=== PATIENT | male | born 1935 | race Caucasian/White ===

== ENCOUNTER → 2018-05-22 | Outpatient (CLI) | payer MEDICARE ==
[~2018-05-22] MED LIST: BETA1 PO; CITRACEL; METRIBP PO; MULVITMINF PO; PANT40 PO; RIVA1.5 PO; RXHYD5325 PO; VITAMIN C; [UNRECOGNIZED DRUG - OTHER]; [UNRECOGNIZED DRUG - OTHER]
== END | disposition home or self-care (01) ==
LOC: LAB SHORT 10:27 → PLD 10:27
DX: D48.5 Neoplasm of uncertain behavior of skin (principal)
CPT/HCPCS: 88305

== ENCOUNTER 2018-11-01 16:45 | Emergency (ER) | payer MEDICARE ==
[~2018-11-01] VITALS: Ht 175.3 cm; Wt 79.4 kg
[2018-11-01 17:54] LABS: BASOPHILS ABSOLUTE AUTO 0.04 K/mm3 (0.00-0.23); BASOPHILS PERCENT AUTO 1 % (0-2); EOSINOPHILS ABSOLUTE AUTO 0.09 K/mm3 (0.00-0.68); EOSINOPHILS PERCENT AUTO 1 % (0-6); Hematocrit 40.3 % (37.0-53.0); Hemoglobin 12.8 g/dL (13.5-17.5); IMMATURE GRAN ABSOLUTE AUTO 0.05 K/mm3 (0.00-0.10); IMMATURE GRAN PERCENT AUTO 1 % (0-1); LYMPHOCYTES ABSOLUTE AUTO 2.28 K/mm3 (0.84-5.20); LYMPHOCYTES PERCENT AUTO 32 % (21-46); MONOCYTES ABSOLUTE AUTO 0.73 K/mm3 (0.16-1.47); MONOCYTES PERCENT AUTO 10 % (4-13); Mean Corpuscular HGB 29.2 pg (26.0-34.0); Mean Corpuscular HGB Conc 31.8 g/dL (31.5-36.5); Mean Corpuscular Volume 92 fL (80-100); Mean Platelet Volume 9.9 fL (9.1-12.4); NEUTROPHILS ABSOLUTE AUTO 3.92 K/mm3 (1.96-9.15); NEUTROPHILS PERCENT AUTO 55 % (41-73); Platelet Count 197 K/mm3 (150-400); RDW Coefficient Variation 13.6 % (11.7-14.2); RDW Standard Deviation 46.5 fL (35.1-46.3); Red Blood Cell Count 4.38 M/mm3 (4.30-5.90); White Blood Cell Count 7.11 K/mm3 (4.00-11.30)
[2018-11-01 18:00] LABS: Alanine Aminotransfer (ALT/SGP 33 U/L (12-78); Albumin, Blood 3.4 g/dL (3.4-5.0); Albumin/Globulin Ratio 1.1 (0.8-1.8); Alk Phos 85 U/L (50-136); Anion Gap 3 mmol/L (6-16); Aspartate Aminotrans (AST/SGOT 25 U/L (12-37); Bilirubin, Total 0.3 mg/dL (0.1-1.0); Blood Urea Nitrogen 14 mg/dL (8-24); Bun/Creatinine Ratio 11.8 (12.0-20.0); CO2, Blood 29 mmol/L (21-32); Calcium, Blood 8.7 mg/dL (8.5-10.1); Chloride, Blood 106 mmol/L (98-108); Creatinine, Blood 1.19 mg/dL (0.60-1.20); Globulin, Blood 3.1 g/dL (2.2-4.0); Glomerular Filtration Rate >60 (60-); Glucose, Blood 87 mg/dL (70-99); Potassium, Blood 3.9 mmol/L (3.5-5.5); Sodium, Blood 138 mmol/L (136-145); Total Protein, Blood 6.5 g/dL (6.4-8.2)
== END 2018-11-01 19:53 | disposition home or self-care (01) ==
LOC: ER 16:45
PROVIDERS: Emergency Medicine
DX: E11.649 Type 2 diabetes mellitus with hypoglycemia without coma (principal); Z88.2 Allergy status to sulfonamides; Z88.1 Allergy status to other antibiotic agents; Z88.8 Allergy status to other drugs, medicaments and biological substances; Z79.899 Other long term (current) drug therapy; I10 Essential (primary) hypertension
CPT/HCPCS: 80053; 82947; 83690; 84484; 85025; 93005; 93010; 99285-25

== ENCOUNTER 2019-05-14 20:51 | Emergency (ER) | payer MEDICARE ==
[~2019-05-14] VITALS: Ht 177.8 cm; Wt 77.1 kg
[2019-05-14 21:59] LABS: BASOPHILS ABSOLUTE AUTO 0.05 K/mm3 (0.00-0.23); BASOPHILS PERCENT AUTO 1 % (0-2); EOSINOPHILS ABSOLUTE AUTO 0.04 K/mm3 (0.00-0.68); EOSINOPHILS PERCENT AUTO 1 % (0-6); Hematocrit 38.7 % (37.0-53.0); IMMATURE GRAN ABSOLUTE AUTO 0.03 K/mm3 (0.00-0.10); IMMATURE GRAN PERCENT AUTO 0 % (0-1); LYMPHOCYTES ABSOLUTE AUTO 2.17 K/mm3 (0.84-5.20); LYMPHOCYTES PERCENT AUTO 31 % (21-46); MONOCYTES ABSOLUTE AUTO 0.58 K/mm3 (0.16-1.47); MONOCYTES PERCENT AUTO 8 % (4-13); Mean Corpuscular HGB 29.3 pg (26.0-34.0); Mean Corpuscular HGB Conc 33.6 g/dL (31.5-36.5); Mean Corpuscular Volume 87 fL (80-100); Mean Platelet Volume 9.3 fL (9.1-12.4); NEUTROPHILS ABSOLUTE AUTO 4.05 K/mm3 (1.96-9.15); NEUTROPHILS PERCENT AUTO 59 % (41-73); Platelet Count 225 K/mm3 (150-400); RDW Coefficient Variation 13.6 % (11.7-14.2); Red Blood Cell Count 4.44 M/mm3 (4.30-5.90); White Blood Cell Count 6.92 K/mm3 (4.00-11.30)
[2019-05-14 22:17] LABS: Alanine Aminotransfer (ALT/SGP 34 U/L (12-78); Albumin, Blood 3.7 g/dL (3.4-5.0); Albumin/Globulin Ratio 1.2 (0.8-1.8); Alk Phos 82 U/L (50-136); Anion Gap 9 mmol/L (6-16); Aspartate Aminotrans (AST/SGOT 31 U/L (12-37); Bilirubin, Total 0.4 mg/dL (0.1-1.0); Blood Urea Nitrogen 9 mg/dL (8-24); Bun/Creatinine Ratio 10.1 (12.0-20.0); CO2, Blood 26 mmol/L (21-32); Calcium, Blood 8.6 mg/dL (8.5-10.1); Chloride, Blood 102 mmol/L (98-108); Creatinine, Blood 0.89 mg/dL (0.60-1.20); Ethanol (Alcohol), Blood, Med 79 mg/dL; Glomerular Filtration Rate >60 (60-); Glucose, Blood 93 mg/dL (70-99); Potassium, Blood 3.4 mmol/L (3.5-5.5); Sodium, Blood 137 mmol/L (136-145); Total Protein, Blood 6.7 g/dL (6.4-8.2)
== END 2019-05-14 22:38 | disposition home or self-care (01) ==
LOC: ER 20:51
PROVIDERS: Physician Assistant
DX: F10.129 Alcohol abuse with intoxication, unspecified (principal); Y90.3 Blood alcohol level of 60-79 mg/100 ml; F03.90 Unspecified dementia, unspecified severity, without behavioral disturbance, psychotic disturbance, mood disturbance, and anxiety; Z88.2 Allergy status to sulfonamides; Z88.1 Allergy status to other antibiotic agents; Z88.8 Allergy status to other drugs, medicaments and biological substances; Z79.899 Other long term (current) drug therapy
CPT/HCPCS: 36415; 80053; 82947; 85025; 93005; 93010; 99284-25; G0480

== ENCOUNTER 2019-07-04 19:06 | Observation (INO) | payer MEDICARE, OTHER ==
[~2019-07-04] VITALS: Ht 190.5 cm; Wt 76.3 kg
[2019-07-04] MEDS ORDERED: Flonase 0.05% N16 GM (20:26)
[2019-07-04] MEDS ORDERED: GALA8 PO (20:27)
[2019-07-04] MEDS ORDERED: Citrucel500 MG (20:28)
[2019-07-04] MEDS ORDERED: TUMS500 MG PO (20:28)
[2019-07-04] MEDS ORDERED: AMLO10 PO (20:30)
[2019-07-04] MEDS ORDERED: OCUVITE ADULT1 EAC1 PO (20:30)
[2019-07-04 20:38] LABS: BASOPHILS ABSOLUTE AUTO 0.03 K/mm3 (0.00-0.23); BASOPHILS PERCENT AUTO 0 % (0-2); EOSINOPHILS ABSOLUTE AUTO 0.02 K/mm3 (0.00-0.68); EOSINOPHILS PERCENT AUTO 0 % (0-6); Hematocrit 40.3 % (37.0-53.0); Hemoglobin 13.5 g/dL (13.5-17.5); IMMATURE GRAN ABSOLUTE AUTO 0.04 K/mm3 (0.00-0.10); IMMATURE GRAN PERCENT AUTO 0 % (0-1); LYMPHOCYTES ABSOLUTE AUTO 1.78 K/mm3 (0.84-5.20); LYMPHOCYTES PERCENT AUTO 19 % (21-46); MONOCYTES PERCENT AUTO 8 % (4-13); Mean Corpuscular HGB 28.8 pg (26.0-34.0); Mean Corpuscular HGB Conc 33.5 g/dL (31.5-36.5); Mean Corpuscular Volume 86 fL (80-100); Mean Platelet Volume 8.9 fL (9.1-12.4); NEUTROPHILS ABSOLUTE AUTO 6.73 K/mm3 (1.96-9.15); NEUTROPHILS PERCENT AUTO 73 % (41-73); Platelet Count 228 K/mm3 (150-400); RDW Coefficient Variation 13.9 % (11.7-14.2); RDW Standard Deviation 43.8 fL (35.1-46.3); Red Blood Cell Count 4.68 M/mm3 (4.30-5.90)
[2019-07-04 21:00] LABS: Acetaminophen, Random <2.0 ug/mL (10.0-30.0); Alanine Aminotransfer (ALT/SGP 34 U/L (12-78); Albumin/Globulin Ratio 1.4 (0.8-1.8); Alk Phos 81 U/L (50-136); Anion Gap 10 mmol/L (6-16); Aspartate Aminotrans (AST/SGOT 29 U/L (12-37); Bilirubin, Total 0.6 mg/dL (0.1-1.0); Blood Urea Nitrogen 12 mg/dL (8-24); Bun/Creatinine Ratio 9.6 (12.0-20.0); CO2, Blood 25 mmol/L (21-32); Calcium, Blood 9.5 mg/dL (8.5-10.1); Chloride, Blood 105 mmol/L (98-108); Creatinine, Blood 1.25 mg/dL (0.60-1.20); Ethanol (Alcohol), Blood, Med <3 mg/dL; Globulin, Blood 2.8 g/dL (2.2-4.0); Glomerular Filtration Rate 59 (60-); Glucose, Blood 118 mg/dL (70-99); Potassium, Blood 3.7 mmol/L (3.5-5.5); Salicylate <1.7 mg/dL (2.8-20.0); Sodium, Blood 140 mmol/L (136-145); Total Protein, Blood 6.8 g/dL (6.4-8.2)
[2019-07-04 21:47] LABS: Source, Urine Clean Catch
[2019-07-04 21:52] LABS: Bilirubin, Urine Neg (Neg); Blood, Urine Neg (Neg); Glucose Qualitative, Urine Neg (Neg); Ketones, Urine 3+ (Neg); Leukocyte Esterase, Urine 2+ (Neg); Nitrite, Urine Neg (Neg); Protein, Urine 1+ (Neg); Specific Gravity, Urine 1.015 (1.003-1.022); Urobilinogen, Urine NORM (Normal)
[2019-07-04 21:57] LABS: Appearance, Urine Clear (Clear); Color, Urine Yellow (P-Yellow)
[2019-07-04] MEDS ORDERED: TAMS.4ER PO (21:57)
[2019-07-04] MEDS ORDERED: RAZADYNE PO (21:57)
[2019-07-04] MEDS ORDERED: VITAMIN D5000 UNI1 PO (21:58)
[2019-07-04] MEDS ORDERED: TIMO.25OPS BOTHEYES (21:58)
[2019-07-04] MEDS ORDERED: TRAZ50 PO (21:59)
[2019-07-04 22:01] LABS: Bacteria Mod /hpf; Mucus Mod (0-Heavy); Red Blood Cells, Urine 0-2 /hpf (0-2); Squamous Epithelial Cells Rare /hpf (Few)
[2019-07-04 22:02] LABS: U Amphetamine Screen Not Detected; U Barbituate Screen Not Detected; U Benzodiazapine Screen Not Detected; U Cocaine Screen Not Detected; U Methadone Screen Not Detected; U Methamphetamine Screen Not Detected; U Opiates Screen Not Detected; U Phencyclidine Screen Not Detected
[2019-07-04 22:03] LABS: U Buprenorphine Screen Not Detected; U Cannabinoids Screen Not Detected; U Oxycodone Screen Not Detected; U Propoxyphene Screen Not Detected
[2019-07-04 23:26] LABS: Free Thyroxine 1.21 ng/dL (0.70-1.60)
[2019-07-05 05:22] LABS: Hematocrit 39.4 % (37.0-53.0); Hemoglobin 12.9 g/dL (13.5-17.5); Mean Corpuscular HGB 28.7 pg (26.0-34.0); Mean Corpuscular HGB Conc 32.7 g/dL (31.5-36.5); Mean Corpuscular Volume 88 fL (80-100); Mean Platelet Volume 9.3 fL (9.1-12.4); Platelet Count 219 K/mm3 (150-400); RDW Standard Deviation 44.6 fL (35.1-46.3); Red Blood Cell Count 4.49 M/mm3 (4.30-5.90); White Blood Cell Count 8.85 K/mm3 (4.00-11.30)
[2019-07-05 06:05] LABS: Alanine Aminotransfer (ALT/SGP 28 U/L (12-78); Albumin, Blood 3.6 g/dL (3.4-5.0); Albumin/Globulin Ratio 1.2 (0.8-1.8); Alk Phos 79 U/L (50-136); Anion Gap 7 mmol/L (6-16); Aspartate Aminotrans (AST/SGOT 24 U/L (12-37); Bilirubin, Total 0.6 mg/dL (0.1-1.0); Blood Urea Nitrogen 13 mg/dL (8-24); Bun/Creatinine Ratio 13.6 (12.0-20.0); CO2, Blood 27 mmol/L (21-32); Calcium, Blood 9.2 mg/dL (8.5-10.1); Chloride, Blood 109 mmol/L (98-108); Creatinine, Blood 0.96 mg/dL (0.60-1.20); Globulin, Blood 2.9 g/dL (2.2-4.0); Glomerular Filtration Rate >60 (60-); Glucose, Blood 104 mg/dL (70-99); Potassium, Blood 3.9 mmol/L (3.5-5.5); Sodium, Blood 143 mmol/L (136-145); Total Protein, Blood 6.5 g/dL (6.4-8.2)
--- NOTE | 2019-07-05 07:28 | NUR ---
SHIFT SUMMARY PT ARRIVED TO ROOM APPROX 2315. ORIENTED TO SELF ONLY AND MAKING SOUNDS MORE THAN SPEAKING WORDS. RESTLESS AND TRYING TO GET OOB. MEDICATED PER EMAR AND HE WAS ABLE TO DOSE A LITTLE BIT. DIDN'T SLEEP MUCH. SBA WHEN OOB. CONT AND WILL GET OOB WHEN HE NEEDS TO GO. BED ALARM IN USE.
--- NOTE | 2019-07-05 19:16 | NUR ---
SHIFT SUMMARY: NO ACUTE CHANGES TO REPORT THIS SHIFT. PTALERT; ORIENTED TO SELF AND FAMILY. SEVERE DEMENTIA; PT ABLE TO FOLLOW SIMPLE COMMANDS. PT UP WITH SBA. PATIENT WILL REQUIRE PLACEMENT IN MEMORY CARE. REPORT GIVEN TO ONCOMING RN.
--- NOTE | 2019-07-06 01:26 | NUR ---
0110 Found patient on the floor on his knees. Pt has one small scrap on his left knee. No other apparent injuries noted. We were able to get him back in bed without problems. Pt has severe dementia and will not stay in bed unless poseyed so pt put back on farrukh restraint. Vital signs are BP 135/89, pulse 70, rr 14, temperature 97.4, and O2 sat of 96%. MD notified. Restraint orders recieved. Pt cleaned up and put in farrukh restraints. Bed alarm on.
--- NOTE | 2019-07-06 05:26 | NUR ---
Shift summary. Pt was very mobile and ambulating the stewart earlier in shift. pt seemed stable. Around one in am pt fell to his knees at end of bed. See above noted. No significant injuries noted. Pt has one small abrasion on left knee. No c/o pain. MD notified and orders for farrukh restrain orders recieved. Pt will not stay in bed unless he is poseyed. Has not slept all night. Keeps trying to get up constantly. VSS. Speech very difficult to understand.
--- NOTE | 2019-07-06 07:29 | NUR ---
Pt bladder scanned for 817 cc.
[2019-07-06 08:41] LABS: BASOPHILS ABSOLUTE AUTO 0.02 K/mm3 (0.00-0.23); BASOPHILS PERCENT AUTO 0 % (0-2); EOSINOPHILS ABSOLUTE AUTO 0.04 K/mm3 (0.00-0.68); EOSINOPHILS PERCENT AUTO 1 % (0-6); Hemoglobin 15.4 g/dL (13.5-17.5); IMMATURE GRAN ABSOLUTE AUTO 0.03 K/mm3 (0.00-0.10); IMMATURE GRAN PERCENT AUTO 0 % (0-1); LYMPHOCYTES ABSOLUTE AUTO 2.05 K/mm3 (0.84-5.20); LYMPHOCYTES PERCENT AUTO 28 % (21-46); MONOCYTES ABSOLUTE AUTO 0.63 K/mm3 (0.16-1.47); MONOCYTES PERCENT AUTO 9 % (4-13); Mean Corpuscular HGB 28.7 pg (26.0-34.0); Mean Corpuscular HGB Conc 32.8 g/dL (31.5-36.5); Mean Corpuscular Volume 88 fL (80-100); Mean Platelet Volume 9.1 fL (9.1-12.4); NEUTROPHILS ABSOLUTE AUTO 4.57 K/mm3 (1.96-9.15); NEUTROPHILS PERCENT AUTO 62 % (41-73); Platelet Count 254 K/mm3 (150-400); RDW Standard Deviation 45.1 fL (35.1-46.3); Red Blood Cell Count 5.36 M/mm3 (4.30-5.90); White Blood Cell Count 7.34 K/mm3 (4.00-11.30)
[2019-07-06 09:04] LABS: Anion Gap 6 mmol/L (6-16); Blood Urea Nitrogen 8 mg/dL (8-24); Bun/Creatinine Ratio 9.5 (12.0-20.0); CO2, Blood 29 mmol/L (21-32); Calcium, Blood 9.5 mg/dL (8.5-10.1); Chloride, Blood 108 mmol/L (98-108); Creatinine, Blood 0.84 mg/dL (0.60-1.20); Glomerular Filtration Rate >60 (60-); Glucose, Blood 110 mg/dL (70-99); Potassium, Blood 3.5 mmol/L (3.5-5.5); Sodium, Blood 143 mmol/L (136-145)
--- NOTE | 2019-07-06 09:09 | NUR ---
PATIENT DID NOT EAT BREAKFAST THIS SHIFT DUE TO BEING NOT AWAKE ENOUGH TO EAT. RN NOTIFIED.
--- NOTE | 2019-07-06 13:16 | NUR ---
PATIENT DID NOT EAT LUNCH THIS SHIFT DUE TO NOT BEING AWAKE ENOUGH TO EAT. RN WAS NOTIFIED.
--- NOTE | 2019-07-06 15:43 | NUR ---
HE WAS BLADDER SCANNED TWICE AT THE START OF THE SHIFT BEFORE AND AFTER A LARGE INCONTINENT VOID. SCANS SHOWED 800 MLS AND > 999 MLS. WE WALKED HIM TO THE BATHROOM SO HE COULD TRY TO VOID IN THE TOILET BUT HE WAS UNABLE TO FOLLOW INSTRUCTIONS AND DID NOT VOID. I THEN ST CATHED HIM FOR 700 MLS OF CLEAR YELLOW URINE. HE NEEDED TO HAVE HIS HANDS HELD DURING THE PROCEDURE. HE WAS VERY SLEEPY. HE DID NOT SLEEP LAST NIGHT. HE THEN SLEPT ALL MORNING AND REFUSED THE FOOD WHEN A SPOON WAS PUT TO HIS MOUTH AT LUNCH TIME. HE REMAINED DRY. LATER HIS DAUGHTER CAME IN TO VISIT HIM. SHE AND I WOKE HIM UP ENOUGH TO TAKE HIS AM PILLS. HE ALSO, WITH ASSIST WALKED TO THE BATHROOM, SAT DOWN ON THE TOILET BUT DID NOT VOID OR HAVE A BM. HIS STEPS ARE UNCERTAIN AND HE DOES NOT FOLLOW DIRECTIONS WELL AT ALL. HE ATE A BANANA, 1/2 SANDWICH AND NOW IS EATING SOME CHIPS. HE ALSO ATE APPLESAUCE, AND DRANK APPLE JUICE. HIS JUST ARRIVED. HIS LANDEN VEST HAS BEEN UNTIED WHILE FAMILY IS IN THE ROOM. HE CANNOT UNDERSTAND HOW TO USE A NURSE CALL LIGHT AND IS UNSAFE AMBULATING ALONE TODAY. BALANCE AND GAIT ARE BOTH COMPROMISED.
--- NOTE | 2019-07-07 04:43 | NUR ---
Shift summary: Pt slept well overnight. Pt remains on restraints due to recent fall. pt has been cooperative with care but alert and oriented x 0. Bladder scanned at hs for 390 cc. Restraints renewed.
--- NOTE | 2019-07-07 08:33 | NUR ---
PATIENTS ATTENDS WERE CHANGED BUT THEY WERE DRY.
--- NOTE | 2019-07-07 17:58 | NUR ---
HE HAS BEEN UP IN THE RECLINER CHAIR MOST OF THE DAY. CLINT DIETZ WAS DC'D AT 1115 TODAY. HIS FAMILY VISITED FOR A FEW HRS AND MAY STOP BY AGAIN THIS EVENING. 2 CHEMICAL MACHINE TENDER'S ARE HELPING HIM BACK TO BED NOW FOR THE NIGHT. HE HAS BEEN CHANGED AGAIN FOR URINARY INCONTINENCE. I NOTIFIED ABOUT THE HIGH BP'S. ORDERS RECEIVED. NO OTHER CHANGES.
[2019-07-08 04:59] LABS: BASOPHILS ABSOLUTE AUTO 0.02 K/mm3 (0.00-0.23); BASOPHILS PERCENT AUTO 0 % (0-2); EOSINOPHILS ABSOLUTE AUTO 0.04 K/mm3 (0.00-0.68); EOSINOPHILS PERCENT AUTO 0 % (0-6); Hematocrit 42.3 % (37.0-53.0); Hemoglobin 14.2 g/dL (13.5-17.5); IMMATURE GRAN ABSOLUTE AUTO 0.04 K/mm3 (0.00-0.10); IMMATURE GRAN PERCENT AUTO 0 % (0-1); LYMPHOCYTES ABSOLUTE AUTO 2.64 K/mm3 (0.84-5.20); LYMPHOCYTES PERCENT AUTO 24 % (21-46); MONOCYTES ABSOLUTE AUTO 0.81 K/mm3 (0.16-1.47); MONOCYTES PERCENT AUTO 8 % (4-13); Mean Corpuscular HGB Conc 33.6 g/dL (31.5-36.5); Mean Corpuscular Volume 86 fL (80-100); Mean Platelet Volume 8.9 fL (9.1-12.4); NEUTROPHILS ABSOLUTE AUTO 7.31 K/mm3 (1.96-9.15); NEUTROPHILS PERCENT AUTO 67 % (41-73); Platelet Count 222 K/mm3 (150-400); RDW Coefficient Variation 14.3 % (11.7-14.2); RDW Standard Deviation 45.1 fL (35.1-46.3); White Blood Cell Count 10.86 K/mm3 (4.00-11.30)
--- NOTE | 2019-07-08 05:08 | NUR ---
PERFORMED BLADDER SCAN, 697ML NOTED. STRAIGHT CATH DONE PER ORDER. 700MLS OF URINE OUTPUT, PT. TOLERATED WELL.
[2019-07-08 05:23] LABS: Alanine Aminotransfer (ALT/SGP 24 U/L (12-78); Albumin, Blood 3.3 g/dL (3.4-5.0); Alk Phos 74 U/L (50-136); Anion Gap 6 mmol/L (6-16); Aspartate Aminotrans (AST/SGOT 26 U/L (12-37); Bilirubin, Total 0.6 mg/dL (0.1-1.0); Blood Urea Nitrogen 16 mg/dL (8-24); Bun/Creatinine Ratio 14.8 (12.0-20.0); CO2, Blood 29 mmol/L (21-32); Calcium, Blood 9.3 mg/dL (8.5-10.1); Chloride, Blood 106 mmol/L (98-108); Creatinine, Blood 1.08 mg/dL (0.60-1.20); Globulin, Blood 3.3 g/dL (2.2-4.0); Glomerular Filtration Rate >60 (60-); Glucose, Blood 93 mg/dL (70-99); Potassium, Blood 3.8 mmol/L (3.5-5.5); Sodium, Blood 141 mmol/L (136-145); Total Protein, Blood 6.6 g/dL (6.4-8.2)
--- NOTE | 2019-07-08 06:04 | NUR ---
SHIFT SUMMARY- PT. CONFUSED, OUT OF BED LAST NIGHT. ASSISTED BACK INTO BED W/O DIFFICULTY. RESTRAINTS HAVE BEEN OFF SINCE YESTERDAY MORNING, PT. COOPERATIVE WITH CARE. PERFORMED BLADDER SCAN PER ORDER, PVR AT 697ML. STRAIGHT CATH DONE, 700MLS OUT, PT. TOLERATED WELL. PT. RESTING COMFORTABLY IN BED, NO APPARENT DISTRESS NOTED. CALL LIGHT WITHIN REACH, SIDE RAILS UP X3, AND BED ALARM ON. WILL CONT TO MONITOR.
--- NOTE | 2019-07-08 15:10 | NUR ---
SUMM- PT ALERT TO SELF AND FAMILY. PROCESSING DIFFICULTY, UNABLE TO FOLLOW COMMANDS. AMBULATES 1-2 SBA WITH WALKER, GOOD STRENGTH, POOR COORDINATION, SLOW AND RIGID. UP IN THE CHAIR MOST OF THE SHIFT TODAY. ASSISTANCE WITH FEEDING, SWALLOW INTACT. NO VOID TODAY, BLADDER SCAN 1400= 275ML. ST CATH FOR 300ML. AT BEDSIDE MOST OF THE DAY, AND DAUGHTER AND SON IN TO VISIT FROM [place].
--- NOTE | 2019-07-08 22:29 | NUR ---
PERFORMED BLADDER SCAN PER ORDER, 479MLS NOTED. STRAIGHT CATH DONE, PT. HAD OUT 600MLS OF URINE, TOLERATED WELL.
--- NOTE | 2019-07-09 04:29 | NUR ---
SHIFT SUMMARY- PT. NOT VOIDING. BLADDER SCAN DONE PER ORDER, 479MLS. ST CATH PERFORMED WITH OUTPUT OF 600MLS. PT. TOLERATED WELL. SEVERAL ATTEMPTS MADE BY PT. TO GET OUT OF BED AND WAS AGITATED. PT. ASSISTED BACK INTO BED MANY TIMES, REPOSITIONED FOR COMFORT. ZYPREXA PRN GIVEN PER EMAR. PT. RESTING COMFORTABLY IN BED, NO APPARENT DISTRESS NOTED. CALL LIGHT WITHIN REACH, SIDE RAILS UP X3, AND BED ALARM ON. WILL CONT TO MONITOR.
--- NOTE | 2019-07-09 14:06 | NUR ---
Physician notified Dr. Freitas notified of pt's wanting stool softeners of board for patient's bowel care. Orders received.
--- NOTE | 2019-07-09 17:40 | NUR ---
Shift Summary A/O to self, a little agitated this morning. Pt is difficult to redirect, has been in chair for meals, and family has been at bedside. Vest restraints in place for patient and staff safety as patient becomes easily agitated when trying to redirect. Meal assistance required. Ambulated in hallway c 1-2 assist and gait. VSS, afebrile. No other acute changes this shift.
--- NOTE | 2019-07-10 02:40 | NUR ---
PERFORMED BLADDER SCAN= >420MLS. ST CATH DONE PER ORDER, PT. HAD OUTPUT OF 600MLS, TOLERATED WELL. REPOSITIONED IN BED FOR COMFORT, ATTENDS IN PLACE. NO APPARENT DISTRESS NOTED. CALL LIGHT WITHIN REACH, SIDE RAILS UP X3, LANDEN VEST ON, AND BED ALARM SET. WILL CONT TO MONITOR.
--- NOTE | 2019-07-10 04:07 | NUR ---
SHIFT SUMMARY- PT. WAS UP IN CHAIR AT THE BEGINNING OF SHIFT WITH VEST RESTRAINT ON. PT. BECAME AGITATED WHILE UP IN CHAIR AND REFUSING TO TAKE SCHEDULED MEDICATIONS. ASSISTED BACK INTO BED AND REPOSITIONED FOR COMFORT. PT. COOPERATIVE AFTERWARDS. SCHEDULED MEDS GIVEN. NO URINE OUTPUT NOTED IN BRIEF. PERFORMED BLADDER SCAN PER ORDER, = >420MLS. STRAIGHT CATH DONE PER ORDER, PT. HAD OUTPUT OF 600MLS. PT. RESTING CONFORTABLY IN BED, NO APPARENT DISTRESS NOTED. AWAITING ON PLACEMENT. CALL LIGHT WITHIN REACH, VEST RESTRAINT ON, SIDE RAILS UP X3, AND BED ALARM ON. WILL CONT TO MONITOR.
--- NOTE | 2019-07-10 16:17 | NUR ---
Straight Cath Bladder scan showed >400mL. Straight cath was done with 400 output. Pt tolerated procedure well.
--- NOTE | 2019-07-10 17:59 | NUR ---
Shift Summary A/O to self and family. Agitated this morning, behavior improved as the day progressed. Pt actually seemed more drowsy this afternoon compared to yesterday. Family has been in assisting with meals, tolerating meals well. See previous note about bladder scan. Up in chair part of the day. VSS, afebrile. No other acute changes, awaiting placement.
--- NOTE | 2019-07-11 05:14 | NUR ---
SHIFT SUMMARY: JOHNNA IS A 82 Y/O MALE WHO IS PLEASANTLY CONFUSED. HE HAD NO PERIODS OF AGGITATION TONIGHT. HIS SPEECH WAS VERY INCOMPERHENSIVABLE, WITH GARBLED WORDS. HE REMAINED CALM AND SLEPT MOST OF THE NIGHT, RESTRAINT VEST REMAINED IN POSITION HE DID HAVE PERIODS DURING THE DAY OF TRYING TO GET UP. HE TOOK HIS MEDS WITH APPLESAUCE WITH NO PROBLEMS THEN WENT TO SLEEP AFTERWARDS. WILL REPORT NO CHANGES TO THE DAY SHIFT RN.
--- NOTE | 2019-07-11 06:30 | NUR ---
NO URINATION ALL NIGHT, BLADDER SCAN SHOWED 396, STRAIGHT CATH PATIENT, GOT 400CC OF CLEAR YELLOW URINE.
--- NOTE | 2019-07-11 10:17 | NUR ---
VERIFIED VISUAL MONITORING AT 1015, THEY HAVE EYES ON PATIENT
--- NOTE | 2019-07-11 11:19 | NUR ---
PT TURNED PILLOWS PLACED BOTH SIDES. BUTTOCKS SOME REDNESS NOTED.
--- NOTE | 2019-07-11 17:30 | NUR ---
PT IN BED WATCHING TV. CHECKED ATTENDS. IS CDI. REPOSITIOINED. BED IN LOW POSITIOIN, CALL LITE IN REACH, BED ALARM ON FOR SAFETUY
--- NOTE | 2019-07-11 19:11 | NUR ---
SHIFT SUMMARY GOERGE HAD RESTRAINTS DISCONTINUED THIS MORNING AT 0730, PT ALERT AND CONFUSED, BUT RESTING IN BED COMFORTABLY AND NOT ATTEMPTING TO GET OOB. FAMILY VISITED AND ASSISTED PT TO EAT, BUT BY DINNER HE IS FULLY FEEDING HIMSELF WITH JUST MEAL SET UP. NO URINE OUTPUT AND BLADDER SCAN TOWARDS END OF SHIFT SHOWED 450, DR LEVINE ORDERED AMAYA AT 1840. AT THIS POINT, PT BECAME MORE AGITATED AND ATTEMPTING TO GET OOB MULTIPLE TIMES OVER JUST A FEW MINUTES. RESTRAINTS REINITIATED PER DR LEVINE. MEDS GIVEN WITH APPLESAUCE WHOLE, RECOMMEND USING CRUSHED MEDS IN APLESAUCE FOR FUTURE. 2 BM, PARTIALLY CONTINENT, PARTIALLY INCONTINENT. SBA TO BR, NOT VERY DIRECTABLE/ABLE TO FOLLOW INSTRUCTIONS. UNINTELLIGIBLE SPEECH. NO S/S PAIN. CALL LIGHT IN REACH
[2019-07-11 20:17] LABS: Source, Urine Catheter
[2019-07-11 20:21] LABS: Bilirubin, Urine Neg (Neg); Blood, Urine 4+ (Neg); Glucose Qualitative, Urine Neg (Neg); Ketones, Urine Neg (Neg); Leukocyte Esterase, Urine 1+ (Neg); Nitrite, Urine Neg (Neg); Protein, Urine 2+ (Neg); Urobilinogen, Urine NORM (Normal)
[2019-07-11 20:25] LABS: Appearance, Urine Clear (Clear); Color, Urine Yellow (P-Yellow)
[2019-07-11 20:47] LABS: Amorphous Mod (0-Heavy); Bacteria Few /hpf; Mucus Light (0-Heavy); Squamous Epithelial Cells Rare /hpf (Few)
--- NOTE | 2019-07-12 05:26 | NUR ---
SHIFT CHANGE: 82 Y/O MALE CONFUSED AND AGGITATED MOST OF THE NIGHT. HE WAS CONSTANTLY PULLING ON HIS CATHETER, CLOTHING, AND THROWING OFF HIS BLANKETS. GAVE HIM HIS SCHEDULED SERQUEL WHICH DID NOT PHASE HIM THEREFORE ENDED UP GIVING HIM ZYPREXA AND THIS SEEMED TO CALM HIM DOWN MORE TOWARDS INSULATION HELPER WHERE HE SLEPT OFF AND ON FOR SHORT PERIODS OF TIME. HE STAYED IN RESTRAINTS AT THIS TIME DUE TO CONSTANTLY PULLING AT THEM TO GET UP, BEING A FALL RISK. CATHETER REMAINED INTACT, EXCEPT IT HAS SOME BLOODY URINE IN IT FROM HIM PULLING AT THE LINES, HE UNHOOKED IT FROM THE STAT LOCK WHICH I LEFT AND TUCKED UNDER HIS LEG TO PREVENT FURTHER PULLING. HE HAD NO FURTHER CHANGES OR CONCERNS OTHER THEN INCREASE IN CONFUSION AND AGGITATION. WILL REPORT TO DAY SHIFT RN.
--- NOTE | 2019-07-12 09:00 | NUR ---
PT UNABLE FOLLOW COMMANDS, MUMBLES INCOHERANTLY. PULLING AT AMAYA OCCATIONALLY, PULLING AT GOWN REGULARLY. OCCATIONALLY REDIRECTABLE, BUT NORMALLY DOES WHAT WANTS. H/R REG, NO MURMER NOTED. NO TLE. PACER LUCW. LUNGS CLEAR, RESP EASY, UNLABORED. ON R.A. BT X4 LAST BM YEST. VOIDS AMAYA CATH, YELLOW FLUID DRAINING. PT IS 2 ASST TO BATHROOM. UNSTEADY. IN POSY VEST TO KEEP FROM FALLING. HAS BEEN TRYING TO GET UP REGULARLY. NO OTHER CONCERNS AT THIS TIME. BED IN LOW POSITION, CALL LITE IN REACH, BED ALARM ON FOR SAFETY
--- NOTE | 2019-07-12 18:34 | NUR ---
PT INCOHERNT TODAY. UNABLE TO ANSWER ANY QUESTIONS. IN AND OUT TODAY. IN POSY RESTRAINTS. PULLS AT AMAAY. TRIES TO GET UP. EXTREMELY HIGH FALL RISK IS UNREDIRECTABLE. NOT ABLE TOFOLLOW DIRECTIONS. CONTINUE TO FOLLOW PENDING SNF PLACEMENT. BED IN LOW POSITION, CALL LITE IN REACH. BED ALARM ON FOR SAFETY
--- NOTE | 2019-07-13 05:26 | NUR ---
SHIFT SUMMARY: JOHNNA IS A 84 Y/O MALE WHO IS PLEASANTLY CONFUSED, WITH GARBLED SPEECH AND UNABLE TO REDIRECT EVEN THE SLIGHTIST. HE HAS BEEN IN A POSI VEST ALL NIGHT DUE TO IMPULSIVINESS AND DESTRUCTIVE BEHAVORIOR. PULLING AT HIS LINES TAKING OFF CLOTHING, AND TRYING TO GET UP WITH OUT ASSISTANCE WHICH HE IS A HIGH FALL RISK. HE HAS BEEN QUIET IN THESE EVENTS NEEDING CLOSE EYE ON HIM AND MONITORING. HE IS ABLE TO TAKE MEDS WITH APPLESAUCE CRUSHED OR HE WILL CHEW THEM UP. HE WAS PLACED IN BED EARLY IN SHIFT AND HAS SLEPT OFF AND ON THROUGHOUT THE ENTIRE NIGHT WITH PERIODS OF THE BEHAVIOR PEAKING THROUGH OFF AND ON. CATHETER REMAINED PATENT AND HE HAS LEFT IT ALONE MOST OF THE NIGHT. NO OTHER ACUTE CHANGES HAVE OCCURED THIS SHIFT. WILL REPORT TO DAY SHIFT RN.
--- NOTE | 2019-07-13 18:31 | NUR ---
SHIFT SUMMARY PATIENT HAS BEEN CONFUSED TODAY. UP IN CHAIR MUCH OF THE DAY SITTING IN THE VANG WITH STAFF. HAD A MASSIVE BM WHILE IN HALLWAY. THIS RN AND JOHAN BARAKAT GOT PATIENT INTO SHOWER AND CLEANED OFF, PLACED BACK IN CHAIR. UNABLE TO FOLLOW SIMPLE COMMANDS. UNABLE TO REDIRECT. FAMILY AT BEDSIDE IN THE EVENING. NO ACUTE ISSUES NOTED. GIVEN ONE DOSE ZYPREXA DUE TO PATIENT INCREASE IN AGGITATION, TRYING TO STAND UP, PULLING AT LINES. PUSHING ON CHAIR. PATIENT FELL ASLEEP SHORTLY AFTER MORTGAGE COUNSELOR.
--- NOTE | 2019-07-14 03:57 | NUR ---
SHIFT SUMMARY: 84 Y/O MALE RESTED COMFORTABLY ALL SHIFT, AMAYA DRAINING YELLOW FLUID, THOUGHT PROCESS DISORGANIZED, ALERT TO PERSON ONLY, BED ALARM APPLIED, BED LOW POSITION, CALL LIGHT AT SIDE.
--- NOTE | 2019-07-14 18:39 | NUR ---
SHIFT SUMMARY PATIENT BEGAN GETTING UP IMPUSLIVELY. DIFFICULT TO REDIRECT. UNAWARE OF SAFETY DEFICITS. PLACED BACK IN LANDEN VEST. CURRENTLY IN BED. APPEARS COMFORTABLE.
--- NOTE | 2019-07-15 03:58 | NUR ---
SHIFT SUMMARY: 84 Y/O MALE RESTED COMFORTABLY ALL SHIFT WHILE WEARING LANDEN VEST, PT ALERT PERSON ONLY, TALKING NONSENSICAL WITH ALL WORDS GARBLED, AMAYA DRAINING CLEAR YELLOW FLUID, NO PAIN OR NAUSEA NOTED, BED ALARM APPLIED, BED LOW POSITION, CALL LIGHT AT SIDE.
--- NOTE | 2019-07-15 17:31 | NUR ---
SHIFT SUMMARY: PT IS ALERT BUT NOT ORIENTED AND HIS SPEECH IS GARBLED. HE CAN BE REDIRECTED AT TIMES. PT HAS NO S/S OF PAIN. PT WAS ASSISTED UP TO THE RECLINER FOR BREAKFAST AND THEN STARTED TO BECOME ANXIOUS AND WAS ASSISTED TO SIT BY THE WINDOW AND WAS VERY CONTENT WATCHING OUTSIDE. LANDEN VEST WAS REMOVED AND PT HAS HAD NO BEHAVIORS SINCE ITS REMOVAL. PT REMAINS A TOTAL ASSIST FOR ALL ADLS AND CARE NEEDS. BLADDER TRAINING WAS COMPLETED PER MD ORDER AND AMAYA WAS DCD WITH NO ISSUE. PT HAS VISITED TWICE TODAY. PT IS NOT ABLE TO MAKE HIS NEEDS KNOWN AND REQUIRES FREQUENT NURSE ROUNDING.
[2019-07-16 00:32] LABS: Source, Urine Catheter
[2019-07-16 00:36] LABS: Bilirubin, Urine Neg (Neg); Blood, Urine 2+ (Neg); Glucose Qualitative, Urine Neg (Neg); Ketones, Urine Neg (Neg); Leukocyte Esterase, Urine 1+ (Neg); Nitrite, Urine Neg (Neg); Protein, Urine 1+ (Neg); Urobilinogen, Urine NORM (Normal)
[2019-07-16 00:38] LABS: Appearance, Urine Clear (Clear); Color, Urine Yellow (P-Yellow)
[2019-07-16 00:42] LABS: Bacteria Mod /hpf; Mucus Light (0-Heavy); Red Blood Cells, Urine 0-2 /hpf (0-2); Squamous Epithelial Cells Not Seen /hpf (Few)
--- NOTE | 2019-07-16 05:09 | NUR ---
SHIFT SUMMARY PT ADMITTED FOR SEVERE DEMENTIA WITH AGITATION. PT HAS NOT EXPRESSED AGITITATION ON THIS SHIFT. HE DID WANDER OUT OF BED, BUT WAS REDIRECTED BACK TO BED. HE IS ON A MECHANICAL SOFT DIET AND PILLS MUST BE CRUSHED IN APPLESAUCE. A AMAYA CATHETER WAS INSERTED PER ORDER DUE TO URINARY RETENTION. PT TOLERATED THE PROCEDURE WELL AND HE HAS BEEN RESTING COMFORTABLY THROUGHOUT THE NIGHT. WILL CONTINUE TO MONITOR.
--- NOTE | 2019-07-16 17:39 | NUR ---
SHIFT SUMMARY: PT IS ALERT AND ORIENTED AT BASELINE TODAY WITH NO S/S OF PAIN. HIS AMAYA REMAINS PATENT WITH CLEAR YELLOW URINE OUTPUT. PT WAS ASSISTED X 1 TO ATTEMPT A BM ON THE TOILET. PT SPENT MOST OF THE MORNING SITTING IN THE HALLWAY LOOKING OUT THE WINDOW. PT CAME TO VISIT THIS AFTERNOON. PT IS NOT ABLE TO MAKE HIS NEEDS KNOWN AND REQUIRES FREQUENT NURSE ROUNDING.
--- NOTE | 2019-07-16 18:19 | NUR ---
PT WAS SITTING IN HIS RECLINER AT THE END OF THE VANG. HE STOOD UP AND ALARM SOUNDED. BY THE TIME THIS NURSE GOT TO THE END OF THE VANG HE HAD LOST HIS BALANCE AND FELL BACK INTO THE WALL AGAINST HIS BACK. PT WAS ASSISTED UP WITH GAIT BELT X 3 AND HELPED BACK TO BED. CHARGE NURSE AND DR LEVINE WERE BOTH NOTIFIED. PT HAS AN ABRASION ON THE RIGHT SIDE OF HIS BACK AND TYLEONL WAS GIVEN FOR PAIN. PT IS RESTING IN BED.
--- NOTE | 2019-07-17 04:49 | NUR ---
SHIFT SUMMARY PT WAS GETTING OUT OF BED EARLIER IN THE SHIFT BUT WAS EASILY REDIRECTED BACK TO BED AND ENJOYED PUDDING AND APPLESAUCE. SINCE THEN HE HAS APPEARED TO REST COMFORTABLY MOST OF THE NIGHT WITH OCCASIONAL REDIRECTION NEEDED. WILL CONTINUE TO MONITOR.
--- NOTE | 2019-07-17 18:30 | NUR ---
SHIFT SUMMARY PT GETTING OOB DURING SHIFT REPORT, SETTING BED ALARM OFF. PT ASSISTED TO CHAIR AND BROUGHT OUT TO VANG IN RECLINER FOR SAFETY. PT ADMITTED WITH SEVERE DEMENTIA AND AGITATION; HX OF ALZ. PT WAITING FOR PLACEMENT. SPEECH IS GARBLED. PT IS NOT DIRECTABLE BY STAFF. PT DOES MUCH BETTER WITH FAMILY. DAUGHTER AND HERE TODAY FOR SEVERAL HOURS. PT ABLE TO AMBULATE IN HALLS QUITE WELL, USING FWW AND GAITBELT. FAMILY WALKED BESIDE PT, REPORTING THAT HE IS USED TO WALKING LONG DISTANCES, DAILY. IT APPEARED THAT PT WAS SAD THAT HE COULD NOT LEAVE WITH HIS DAUGHTER WHEN THEY TOLD HIM THEY HAD TO GO. PT THEN TOOK A NAP IN RECLINER UNTIL IN TONIGHT; ASSISTED PT WITH DINNER. PT NOW SITTING IN W/C IN VANG PLAYING WITH ACTIVITY APRON. MONIQUE TO GRAVITY, PATENT. NO S/SX OF DISTRESS NOTED. WILL REPORT TO ONCOMING RN.
--- NOTE | 2019-07-18 03:37 | NUR ---
SHIFT SUMMARY NO ACUTE CHANGES TONIGHT. FOODS SUCH PUDDING OR APPLESAUCE HELP REDIRECT THE PT. HE HAS BEEN SLEEPING OFF AND ON THROUGHOUT THE NIGHT. WILL CONTINUE TO MONITOR.
--- NOTE | 2019-07-18 07:19 | NUR ---
VERIFIED VIDEO MONITORING CALLED VIDEO MONITOR STEVENSON TO VERIFY VIDEO MONITORING. SHE CONFIRMED.
--- NOTE | 2019-07-18 17:27 | NUR ---
SHIFT SUMMARY PT WAS LETHARGIC/SLEEPY ALL MORNING, HOWEVER HE BECAME MUCH MORE ALERT TOWARDS LATE AFTERNOON. HX:ALZHEIMERS/DEMENTIA. HE DID TAKE HIS MEDS CRUSHED IN APPLESAUCE. VIDEO MONITOR IS OBSERVING. HE DID NOT TRY TO EXIT HIS BED. WE ARE DOING Q 2 TURNS AND FLOATING HIS HEELS. HE HAS A FIDGET APRON FOR USE. HE DOES HAVE A PACEMAKER ON HIS LEFT CHEST WALL. AMAYA IS PATENT AND DRAINING PAULETTE URINE.
--- NOTE | 2019-07-19 04:45 | NUR ---
Rn summary: Patient condition remains unchanged. Pt is confused and non directable. Pt can drink from straw but other times forgets how to drink from it. Meds given crushed in applsauce, tolerated well. Pt was singing lightly for a while this shift. Pt is always picking at things, gown, sheet, socks. Given a fidget blanket which kept him entertained for a while. Pt has a buck cath with dk yellow urine. Pt repositioned in bed, pulls and kicks pillows out. No skin breakdown noted at this time. Bed alarm is on. Will continue to monitor.
--- NOTE | 2019-07-19 07:47 | NUR ---
CALLED VIDEO MONITOR VERIFIED VIDEO MONITORING IS IN PLACE AND ACTIVE
--- NOTE | 2019-07-19 14:41 | NUR ---
Spiritual care visit conducted. Patient is lying in bed and alert with spouse, Diane, bedside. Patient says very little so I diresct all conversation to Diane. She tells me about the last six years since patient's diagnosis all the way up to his current condition and then about the plan of care going forward. She talks about the emotional strain but also about the good family and hindu support she has. I listen empathically and provide pastoral student counsellor and prayer. Diane responds well and shows signs of reduced stress. I will continue to remain available to patient and family.
--- NOTE | 2019-07-19 18:13 | NUR ---
SHIFT SUMMARY PT SAT IN HIS CHAIR FOR MUCH OF THE DAY. HE USED INCOMPREHENSIBLE SPEECH BUT IS PLEASANTLY CONFUSED. I DID PHONE CARE MANAGEMENT TO ASK THE STATUS OF HIS PLACEMENT. THEY STATED THEY HAD NOT HEARD BACK YET FROM CARE FACILITY. HE WAS MORE ALERT TODAY, EVEN TRYING TO EXIT HIS CHAIR A FEW TIMES. CHAIR ALARMS IN PLACE.
--- NOTE | 2019-07-19 23:28 | NUR ---
pt sleeping quietly beginning of shift, awake and agitated later. Pulling at buck cath does not redirect. HS meds taken after multiple attempts crushed and in applesauce. PT swings on this RN when approached. PT given 10 mg odtab zyprexa for aggitation. approached with 2 assist and put scrub pants on to prevent buck removal. PT does not speak to staff sings and hums, cares channel turned on to facilitate calming. awake currently playing with busy apron.
--- NOTE | 2019-07-20 05:18 | NUR ---
84 year old MAle with advanced dementia continues to need a safe environment. He has been attempting to pull buck cath out but no ther attempts at self harm. He has PRN oral zyprexa for aggitation with helpful effect. He weakly swung on this RN without making contact. Squeezed this RNs hand x1 but released without harm. no attempts to climb out of bed unassisted. Needs meds crushed in applesauce takes with several cues. Drank 1/4 of 1 ensure with straw with set up and cues and assist. not able to use call castillo. Inconsistant communication, at times appears able to answer questions other times he sings and hums. and needs placement in secure environment after several elopements and agressive behavior with hammer against self and police.
--- NOTE | 2019-07-21 04:56 | NUR ---
SHIFT SUMMARY NO CHANGES TO REPORT THIS SHIFT. PT HAS BEEN PLESANT WITH CARE, HE HAS REMAINED IN BED THIS SHIFT. A/OX1, SPEECH INCOMPREHENSIBLE. HE DENIES PAIN, BUT IS UNABLE TO ANSWER ANY OTHER OF MY QUESTIONS DURING MY ASSESSMENT. VITALS STABLE. PT TOLEARATES MEDS CRUSHED IN APPLESAUCE. ASSESSMENT UNCHANGED. BED IN LOWEST POSITION, CALL LIGHT WITHIN REACH. WILL CONTINUE TO MONITOR AND REPORT TO ONCOMING RN.
--- NOTE | 2019-07-21 10:11 | NUR ---
NOTIFIED DR THAT PT HAD NOT BEEN TAKING HIS FLOWMAX. ATTEMPTED TO GIVE GIVE MEDICATION. PT SPIT IT OUT.
--- NOTE | 2019-07-21 17:07 | NUR ---
PT WAS CALM AND COOPERATIVE TODAY. PT ONLY BECAME AGITATED ONCE THIS SHIFT AND WAS QUICKLY CALMED WHEN IT WAS IDENTIFIED THAT HE NEEDED TO HAVE A BOWEL MOVMENT. PT UP TO THE WHEEL CHAIR THIS MORNING AND IN BED LATER THIS AFTERNOON. PT USED HIS ACTIVITY APRON MUCH OF THE DAY. PT HAS GOOD APPETITE AND DRINKING WELL. PT AND DAUGHTER CAME TO VISIT THIS AFTERNOON.
--- NOTE | 2019-07-22 05:35 | NUR ---
SHIFT SUMMARY PT HAS RESTED FOR MOST OF THE NIGHT. HE HAD A BRIEF PERIOD OF AGITATION AROUND 0400. HE ATTEMPTED TO GET OUT OF BED A FEW TIMES. PLUCK TRIMMER WALKED WITH PT IN THE HALLWAY WITH FWW, HE DID SEVERAL LAPS UP AND DOWN THE HALLWAY AND FOLLOWED DIRECTIONS PRETTY WELL. THIS SEEMED TO EASE HIS AGITATION. PT MUMBLES WITH INCOMPREHENSIBLE SPEECH, AND HUMS MOST TIMES. BUT ASKS FOR WATER WHEN HE IS THIRSTY. VITALS STABLE. AMAYA IN PLACE PATENT AND DRAINING. NO ACUTE CHANGES TO REPORT. WILL CONTINUE TO MONITOR AND REPORT TO ONCOMING RN.
--- NOTE | 2019-07-22 18:41 | NUR ---
SHIFT SUMMARY- PT ALERT, ORINTED TO HIS FAMILY, BUT NOTHING ELSE. PT CAN NOT FOLLOW DIRECTIONS. PT IS A VERY HIGH FALL RISK. BUSY APRON PROVIDED THE PT IS VERY FIDGETTY. PT MEDS CRUSHED IN APPLE SAUCE, PT REFUSED THE LOVENOX SHOT THIS MORNING. PT DID NOT SEEM TO LIKE STAFF ASSISTING HIM T/O THE SHIFT. PT IN A CHAIR IN THE HALLWAY AT THIS TIME SO HE CAN VISIT WITH STAFF. PT DOES NOT INTERACT APPROPRIATELY, BUT HE INTERACTS IN A CHILD LIKE MANNER. SPOUSE WAS AT THE BEDSIDE FOR MOST OF THE MORNING.
--- NOTE | 2019-07-23 04:45 | NUR ---
SHIFT SUMMARY: 1925 ASSUMED CARE OF PATIENT. PATIENT IN A RECLINER IN THE VANG, QUITE ACTIVE SCOOTING AROUND IN THE CHAIR AND HAD TO BE BOOSTED BACK INTO THE CHAIR SEVERAL TIMES. USING DISTRACTION TO AMUSE HIM. THEN THE AIDE PUT ON SOME MUSIC AND THE PATIENT WAS VERY CONTENT TO LISTEN TO [place] AND MUSIC OF HIS ERA. HE WAS CALM AND COOPERATIVE AND TOOK HIS MEDS TONIGHT CRUSHED IN [facility]. HE SLEPT IN HIS CHAIR AND WAS PUT ON THE BSC TWICE BUT HAD NO BM THS SHIFT.
--- NOTE | 2019-07-23 16:06 | NUR ---
PATIENT REMAINS VERY CONFUSED AND NON VERBAL. HE REQUIRES ASSISTANCE WITH ALL ADLS. HE IS NON VERBAL . NO ACUTE CHANGES
--- NOTE | 2019-07-24 04:45 | NUR ---
CONFUSION CONTINUES EVIDENCED BY INCONGRUENT SPEECH TO QUESTIONS ASKED AT SHIFT COMENCE. HAS BEEN RESTING QUIETLY WITH FEW INTERRUPTIONS THIS SHIFT OTHERWISE. MONIQUE RODRIGUEZ. SEE DOC FLOW SHEETS FOR FURTEHR DETAILS. CALL LIGHT IN REACH. VIDEO MONITORING CONTINUES.
--- NOTE | 2019-07-24 18:39 | NUR ---
NO ACUTE CHANGES. PATIENT WAS ABLE TO FEED SELF FOR SHORT PERIOD BUT REQUIRED STAFF ASSISTANCE. FAMILY AT BEDSIDE.
--- NOTE | 2019-07-24 18:47 | NUR ---
Spiritual Care inital note: I met with ROMY at bedside. He tells me that pt's spouse and dtr are hoping to find a suitable place for Alan. According to ROMY, pt's spouse recognizes she can no longer care for him as his needs have become too great. ROMY responded well to encouragement and affirmation of love/POC. Complimented family for being able to make this difficult, but neccessary change. Pt appears pleasantly confused, smiles easily, and speaks in happy gibberish. Per family, he enjoys [email or web address] songs, so I played a few for him on my phone. He appeared to be singing along albeit with "word salad." Family is not particularly jain, but allowed me to provide prayer for Alan. I will remain available to pt and family.
--- NOTE | 2019-07-25 05:46 | NUR ---
FAMILY MEDICINE RESIDENT SUMMARY PT AAOX1 TO SELF. NO ACUTE CHANGES SINCE SHIFT CHANGE. PT SPEAKS INCOMPREHENSIBLE SENTENCES. HAS A HARD TIME SWALLOWING SO MEDS ARE CRUSHED AND MIXED IN WITH FALGUNI GARCIA TO AID WITH THE SWALLOWING. PT SLEPT ON AND OFF THROUGHOUT THE NIGHT. VSS AND WILL CONTINUE TO MONITOR.
--- NOTE | 2019-07-25 15:24 | NUR ---
Spiritual care visit conducted. Patient is sitting in a reclining chair in the hallway with spouse, Diane, standing nearby. Patient is not responsive questions so I focus on Diane. We talk about how exhuasting the last several years have been and that she has been a 24/7 caregiver with very few breaks along the way. Diane admits to not being very good about self-care and yet she feels guilty about having to palce the patient in an alzheimer's/dementia facility. We talk about why and thoughts that might help her let that go. I listen empathically, encourage self-care and provide pastoral patent counsel and explore sources of meaning. Patient's spouse responds well and displays evidence of catharsis.
--- NOTE | 2019-07-25 18:00 | NUR ---
SHIFT SUMMARY PATIENT ORIENTED TO SELF, CAN COMMUNICATE WITH ONE WORD SENTENCES AT TIMES, USUALLY SPEAKS IN GIBBERISH OR HUMS FREQUENTLY. PT WALKED WITH 2 ASSIST, GAIT BELT, AND FWW AT TIMES TO WALK TO BATHROOM, WAS NOT ABLE TO HAVE A BM, BRIEF CHANGED. PATIENT SAT IN VANG IN RECLINING CHAIR MOST OF SHIFT. AMAYA IN PLACE AND DRAINING, ONLY 325 ML OUT THIS SHIFT. PT REFUSED ALL MEDS TODAY. VISITED IN AFTERNOON, SHE WAS INFORMED OF REFUSAL, SHE SAID SHE THOUGHT TODAY "HE IS HAVING AN OFF DAY". PT ATE ALL OF BREAKFAST, LUNCH, AND MOST OF DINNER. VSS. PT DOES NOT FOLLOW DIRECTIONS.
--- NOTE | 2019-07-26 05:56 | NUR ---
NIGHT SIFT SUMMARY PT A/O X1 TO SELF. PT SLEPT WELL THROUGHOUT THE NIGHT. PT CONINUES TO MUMBLE AND DOES NOT FORM COMPREHENSIBLE SENTENCES. PT IS PLEASANT. AMAYA REMAINS PATENT AND DRAINING DARK URINE. ENCOURAGED PO INTAKE BUT RESISTANT. TOLERATED CRUSHED MEDS WELL WITH JOSE. VSS AND WILL CONTINUE TO MONITOR.
--- NOTE | 2019-07-26 18:30 | NUR ---
SHIFT SUMMARY NO CHANGES TO PATIENT CONDITION. MOST OF MEDS TOLERATED IN [facility]. VISITED IN AFTERNOON. PT GOT BED BATH. PT WAS CONTENT TO SIT IN CHAIR IN VANG MOST OF SHIFT. REPOSITIONED IN CHAIR EVERY FEW HOURS PT WOULD SCOOT DOWN.
--- NOTE | 2019-07-27 01:17 | NUR ---
PATIENT BACK INTO BED AFTER BEING IN CHAIR. BED ALARM ACTIVATED.
--- NOTE | 2019-07-27 03:41 | NUR ---
SHIFT SUMMARY PATIENT HAD NO ACUTE CHANGES OBSERVED THIS SHIFT. AXOX TO SELF. TWO PERSON ASSIST TO BSC. IN CHAIR AT SHIFT CHANGE FOR ABOUT FIVE HRS AND BACK INTO BED. TAKES MEDICATION CRUSHED IN APPLE SAUCE. NONSENSICAL SPEECH. NO IV ACCESS. AMAYA PATIENT AND DRAINING. DENIES PAIN, SOB, AND N/V. VSS/AFEBRILE. BED IN LOWEST POSITION AND ALARM ACTIVATED. CALL LIGHT IN REACH. WILL CONTINUE TO MONITOR UNTIL DAY SHIFT NURSE ASSUMES CARE.
--- NOTE | 2019-07-27 23:50 | NUR ---
PATIENT PULLING AT AMAYA PER SECURITIES COMPLIANCE EXAMINER. PATIENT PULLED COVERS OFF AND GOWN. WILL TRY PANTS WITH GOWN. INCREASED AGITATION NOTED. BED ALARM ACTIVATED.
--- NOTE | 2019-07-28 04:03 | NUR ---
SHIFT SUMMARY PATIENT IN CHAIR IN HALLWAY AT SHIFT CHANGE FOR THREE HOURS AND TRANSFER BACK INTO BED. PATIENT IS RESTLESS IN BED. MONITOR REPORTED PATIENT PULLING AT AMAYA AND LEGS OFF BED. PATIENT BROKE STAT LOCK ATTACHMENT. NOTED INCREASE AGITATION FOR A COUPLE OF HOURS BEFORE FALLING ASLEEP. VSS/AFBERILE. AXO TO SELF AND NONSENSICAL SPEECH. DENIES PAIN, SOB, AND N/V. TAKES MEDS CRUSHED IN SHERBERT OR A.S. NO IV ACCESS. AMAYA PATENT AND DRAINING. CALL LIGHT IN REACH. BED IN LOWEST POSITION. BED ALARM ACTIVATED. WILL CONTINUE TO MONITOR UNTIL DAY SHIFT NURSE ASSUMES CARE.
--- NOTE | 2019-07-28 18:42 | NUR ---
PT. SITTING IN HALLWAY IN RECLINER. HAS BEEN HERE SINCE AROUND NOON. NO NOTED CHANGES THIS SHIFT. DAUGHTER AND SPOUSE CAME AT SEPERATE TIMES TO SEE PT. TODAY. PT. DOES MUCH BETTER BEING IN VANG.
--- NOTE | 2019-07-29 03:49 | NUR ---
SHIFT SUMMARY PATIENT HAD NO ACUTE CHANGES OBSERVED. AXO TO SELF AND BEDFAST.INCOMPREHENSIBLE SPEECH. PATIENT OUT IN HALLWAY AT START OF SHIFT. BACK IN BED FOUR HRS LATER. PATIENT PULLING AT AMAYA, COVERS, AND DISTRACTION VEST IN USE. TAKES MEDICATION CRUSHED IN SHERBERT OR A.S. AMAYA PATENT AND DRAINING. NO IV ACCESS. VSS/AFEBRILE. DENIES PAIN, SOB, AND N/V. CALL LIGHT IN REACH. BED IN LOWEST POSITION AND ALARM ACTIVATED. WILL CONTINUE TO MONITOR UNTIL DAY SHIFT NURSE ASSUMES CARE.
--- NOTE | 2019-07-29 10:02 | NUR ---
HE IS TOO SLEEPY TO BE ABLE TO SWALLOW PILLS AT THIS TIME.
--- NOTE | 2019-07-29 14:08 | NUR ---
A FACILITY COMPRESSED GAS TESTER FROM [place] IS HERE TO EVALUATE JOHNNA BUT HE IS SLEEPING THROUGH IT. HE ATE BREAKFAST BUT HAS HAD NO PO INTAKE SINCE BECAUSE HE HAS BEEN TOO SLEEPY. HE APPEARS COMFORTABLE. MONIQUE PATENT. NO LABS TODAY. VSS.
--- NOTE | 2019-07-29 16:09 | NUR ---
THE EVALUATER AND HIS FAMILY HAVE LEFT. JOHNNA IS STILL SLEEPING, SNORING INTERMITTENTLY. NO CHANGES.
--- NOTE | 2019-07-29 16:48 | NUR ---
HE HAS BEEN SLEEPY MOST OF THE DAY. HE WAS UNABLE TO PARTICIPATE IN THE FACILITY EVALUATION MIDDAY TODAY. HIS AND DAUGHTER PARTICIPATED. HE HAS NOT TAKEN PO SINCE BREAKFAST D/T HIS DECREASED LOC. MONIQUE PATENT. NO LABS TODAY. VSS.
--- NOTE | 2019-07-29 18:16 | NUR ---
Clinical Visit: Pt is resting with eyes closed. Gave family information on hospice care. He qualifies under dementia diagnosis. Reviewed nurse visits, bath aid visits. All questions answered and family expresses appreciation of information. They will consider hospice with his placement.
--- NOTE | 2019-07-30 06:43 | NUR ---
SHIFT SUMMARY: JOHNNA IS A 84 Y/O MALE, WHO HAS BEEN HERE FOR SOME TIME. HE HAS REMAINED PLEASANT AND COOPERATIVE ALL NIGHT WITH NO ACUTE CHANGES OR CONCERNS TO NOTE. PATIENT HAS BEEN REPOSITIONED, MEDS WERE GIVEN IN APPLESAUCE, AND HE SLEPT MOST OF THE NIGHT COMFORTABLY. WILL REPORT TO DAY SHIFT RN.
--- NOTE | 2019-07-30 12:16 | NUR ---
HE HAS BEEN AWAKE TODAY, ATE BREAKFAST WELL THEN WENT BACK TO HIS SINGING, HUMMING, NOT WORDS. HE WAS AGITATED BY HIS BATH AND BED CHANGE. HE IS CALM AGAIN NOW. HIS SON-IN-LAW VISITED EARLIER.
--- NOTE | 2019-07-30 14:44 | NUR ---
HE IS RESTING COMFORTABLY. HE HAS BEEN HOLDING ONTO HIS TOP BLANKETS ALL DAY, GRIPPING THEM TIGHT. HE DID NOT WANT ANY LUNCH.
--- NOTE | 2019-07-30 16:49 | NUR ---
JOHNNA HAS BEEN AWAKE ALL DAY. HE HAS BEEN HUMMING OR QUIET. HE ATE BREAKFAST BUT NOT LUNCH. HE LOOKS COMFORTABLE. A INTEGRATED CIRCUIT IC LAYOUT DESIGNER FROM A RESIDENTIAL HOME IN [place] WAS HERE TODAY. I NOTIFIED THERESA AIR BREAKER OPERATOR. HIS AND DAUGHTER ARE WITH HIM IN THE ROOM NOW.
--- NOTE | 2019-07-30 20:35 | NUR ---
PATIENT SINGING TO SELF IN BED, GRABBING THE COVERS AND MOVING THEM AROUND, APPEARING TO BE VERY CONTENT IN WHAT IS GOING ON. HE RESPONDS TO HIS NAME. BUT WILL NOT FORM WORDS. HE DOES NOT FOLLOW DIRECTIONS BUT WILL WORK WITH YOU ON ASSESSMENT. HE IS PLEASANT AND COOPERTIVE TO A POINT. SEE ASSESSMENT FOR FURTHER DETAILS. WILL CONTINUE TO MONITOR THROUGHOUT THE NIGHT FOR ANY CHANGES.
--- NOTE | 2019-07-31 05:35 | NUR ---
SHIFT SUMMARY: JOHNNA HAD A GOOD NIGHT, SLEEPING OFF AND ON THROUGHOUT THE SHIFT. HE HAS HAD NO ACUTE CHANGES OR CONCERNS. MOSTLY MUBLED AND MADE SOUNDS PLAYING WITH HIS BLANKET. TOOK MEDS WITH NO PROBLEMS, WILL REPORT TO DAY SHIFT RN.
--- NOTE | 2019-07-31 08:18 | NUR ---
VERIFIED VIDEO MONITORING CALLED VIDEO CHARGE WEIGHER TO VERIFY VIDEO MONITORING
--- NOTE | 2019-07-31 16:12 | NUR ---
SHIFT SUMMARY FAMILY IS HOPEFUL FOR PLACEMENT IN A MEMORY CARE FACILITY IN [place]. MONIQUE IS PATENT AND DRAINING. PT IS A&O TO SELF ONLY. NO BM SINCE 07/24. PT RECEIVES SENNERootlessT MORNING AND NIGHT. I WILL BEGIN WITH MOM TODAY.
--- NOTE | 2019-07-31 19:20 | NUR ---
PATIENT WAS SITTING UP IN THE HALLWAY BUT STARTED TO SCOOT OUT OF THE CHAIR, IT TOOK THREE STAFF MEMBERS TO GET HIM BACK TO BED. HE WAS PRESSING BACK AND PUSHING AWAY FROM US WE LIFTED. PATIENT WAS TRANSFERRED TO BED, WHERE HE WAS HAPPY LAYING THERE. SINGING TO SELF, AND MOVING HIS HANDS. WILL PROVIDE CARE PER THE CARE PLAN. AND CONTINUE TO MONITOR.
--- NOTE | 2019-08-01 05:15 | NUR ---
SHIFT SUMMARY: JOHNNA WAS VERY AGGITATED AT THE START OF THE SHIFT. HE CONTINUED TO WANT TO CLIMB OUT OF BED AND WAS FOUND HALF WAY OUT MULITPLE OF TIMES. HAD TO PUT HIM BACK TO BED WHICH AGGITATED HIM MORE. THEREFORE GAVE NIGHT TIMES MEDS IN HOPE THE SERQUEL WOULD HELP. THIS DID NOT HELP. SO ZYPREXA WAS GIVEN. THIS CALMED HIM DOWN AND HE LAID IN BED FOR SHORT PERIOD OF TIME BEFORE FALLING ASLEEP. HE SLEPT GOOD THE REST OF THE SHIFT. NO OTHER CHANGES OCCURRED THIS SHIFT. WILL REPORT TO DAY SHIFT RN.
--- NOTE | 2019-08-01 07:23 | NUR ---
CONFIRMED VIDEO MONITORING CALLED VIDEO CORE MAKER BRIANNA TO CONFIRM VIDEO MONITORING
--- NOTE | 2019-08-01 17:57 | NUR ---
SHIFT SUMMARY PT UP IN CHAIR FOR MEALS. ATE MOST OF EACH MEAL TODAY. PLEASANTLY CONFUSED OR RESTING THROUGHOUT SHIFT. AWAITING PLACEMENT. FAMILY IN ROOM MUCH OF THE DAY. PT MUTTERS UNINTELLIGIBLE WORDS OR HUMS.
--- NOTE | 2019-08-02 04:19 | NUR ---
SHIFT SUMMARY PATIENT AWAKE FOR A GOOD PART OF THE SHIFT. SLEPT FOR ABOUT 3 HOURS. PO MEDS TAKEN CRUSHED WITH APPLESAUCE/PUDDING WITHOUT DIFFICULTY. AMAYA PATENT AND DRAINING TO GRAVITY. PATIENT REPOSITIONED T/O THE NIGHT. NO ACUTE CHANGES TO REPORT THIS SHIFT. WILL CONTINUE TO MONITOR AND PROVIDE CARE NEEDED.
--- NOTE | 2019-08-02 18:46 | NUR ---
PT CALM THROUGHOUT THIS SHIFT. PT SLEPT MOST OF THIS AM. PT CONFUSED AND RARELY SPEAKS COHERENTLY. PT COOPERATIVE WITH CARE AND OCCASIONALLY RESPONDS APPROPRIATLY WITH QUESTIONS ABOUT FAMILY. PT FIDGETS WITH BUSY BLANKET AND HUM/SINGS MOST OF THE TIME. PT REQUIRES ASSISTANCE TO EAT AND WITH ALL ADLS. PT TO BE ADMITTED TO MEMORY CARE. WILL CONTINUE TO MONITOR.
--- NOTE | 2019-08-03 06:28 | NUR ---
SHIFT SUMMARY NO ACUTE EVENTS OVERNIGHT. PATIENT DISORIENTED BUT DOES AT TIMES RESPOND TO NAME. PATIENT NOT ATTEMPTING TO GET OUT OF BED BUT WAS FOUND AT TIMES WITH CATHETER BAG PULLED ON TO BED. PATIENT UNABLE TO ANSWER QUESTIONS, WILL CONTINUE TO MONITOR AND REPORT TO ON COMING SHIFT.
--- NOTE | 2019-08-03 17:44 | NUR ---
SHIFT SUMMARY- PT VERY CONFUSED. PT MAINLY NONVERBAL BUT DOES HUM TO HIMSELF. UP TO RECLINER T/O MOST OF THE DAY WITH 2 ASSIST. LS CLEAR, ON RA. HRR. MONIQUE PATENT AND DRAINING. VISITOR IN THIS EVENING TO ASSIST WITH DINNER. PT AWAITING PLACEMENT. NO OTHER ACUTE CHANGES THIS SHIFT.
--- NOTE | 2019-08-04 05:35 | NUR ---
NO ACUTE EVENTS OVERNIGHT. PATIENT IN CHAIR AT BEGINING OF SHIFT. PIVOTED BACK TO BED WITH 3 PERSON ASSIST. PATIENT RESPONDING TO NAME. AMAYA CATHETER PATENT AND DRAINING. BED ALARM IN PLACE. WILL CONTINUE TO MONITOR AND REPORT TO ON COMING SHIFT.
--- NOTE | 2019-08-04 09:30 | NUR ---
pt pleasantly singing quietly. talks with sing song voice also. no c.o pain. no s/s distress. does not fololow commands does not answer questions. h/r reg, no murmer noted. no tle. lungs clear, resp easy, unlabored. on r.a. bt x4 last bm this am. voids attends, 2 max asst if out of bed. bed in low position ,cll lite in reach, bed alarm on for safety
--- NOTE | 2019-08-04 17:50 | NUR ---
PT SING SONG MOST OF DAY. ABLE TO STAND TO TRANSFER TO CHAIR TODAY. 2 MAX ASST. DID DROP WATER ON FLOOR THIS AM. DID KNOCK OFF LUNCH TRAY TODAY. IS EATING DINNER TODAY. IN RECLINER CHAIR AT THIS TIME. CHAIR ALARM ON FOR SAFETY . CALL LITE IN REACH.
--- NOTE | 2019-08-05 03:44 | NUR ---
SHIFT SUMMARY AOX0. LS CLEAR. DENIES NAUSEA, SOB, AND PAIN. MEPILEX TO COCCYX. 2 ASSIST FROM CHAIR TO BED. BED AND CHAIR ALARM. NO IV ACCESS. AMAYA DRAINING CLEAR YELLOW. PILLS CRUSHED IN APPLESAUCE. AWAITING PLACEMENT, HOPEFULLY DANILO MONTEJO TODAY.
--- NOTE | 2019-08-05 07:30 | NUR ---
PT PLEASANTLY CONFUSED. SINGSONG MOST OF TIME. NO ANSWERS, GIBBERISH. TALKATIVE NONSENSICAL. H/R REG, NO MURMER NOTED. NO TELE. LUNGS CLEAR, RESP EASY, UNLABORED. ON R/A. BT X4 LAST BM TODAY. VOIDS AMAYA CATH. YELLOW FLUID DRAINING. BED IN LOW POSITION, CALL LITE IN REACH, WATCHING TV, SINGING. BED ALARM ON FOR SAFETY
[2019-08-05] MEDS ORDERED: EUTHYROX25 MCG PO (14:08)
[2019-08-05] MEDS ORDERED: Seroquel Xr50 MG PO (14:10)
--- NOTE | 2019-08-05 14:31 | NUR ---
Spiritual care visit conducted. Patient is sitting on a chair and alert with Spouse, Diane and daughter, Rebecca, present. Diane tells me that patient is going to a memory care unit in [place] today. She tells me about her visit to the facility and what she liked about it. She tells me that his things from home (including his bed) have been delivered to the facility and that they were just waiting for patient's ride. Diane says she will try to only go up once a week. 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 I provide prayer for patient and family. Diane voices appreciation for the time and prayers.
--- NOTE | 2019-08-05 15:01 | NUR ---
PT TRANPORT ARRIVED 0285 NO IV, NO TELE. ASSISTED TO JENAE. OUT AT 1500.
== END 2019-08-05 14:58 | disposition home health service (06) ==
LOC: ER 19:06 → MEDS 21:54 → ER 21:54 → MEDS 21:54 → ENPENDDIS 08-05 13:23 → MEDS 08-05 14:58
PROVIDERS: Emergency Medicine; Family Medicine; Internal Medicine; ADMIT Internal Medicine
DX: G30.9 Alzheimer's disease, unspecified (principal); F02.81 Dementia in other diseases classified elsewhere, unspecified severity, with behavioral disturbance; D64.9 Anemia, unspecified; N40.1 Benign prostatic hyperplasia with lower urinary tract symptoms; R33.8 Other retention of urine; E03.9 Hypothyroidism, unspecified; R82.90 Unspecified abnormal findings in urine; I49.5 Sick sinus syndrome; I10 Essential (primary) hypertension; F10.21 Alcohol dependence, in remission; Z98.84 Bariatric surgery status; Z87.19 Personal history of other diseases of the digestive system; Z79.899 Other long term (current) drug therapy; Z88.1 Allergy status to other antibiotic agents; Z88.8 Allergy status to other drugs, medicaments and biological substances; Z88.2 Allergy status to sulfonamides
CPT/HCPCS: 36415; 51702; 80048; 80053; 81001; 82607; 82746; 82947; 84439; 84443; 85025; 85027; 87077; 87086; 87186; 92610; 96372; 99285; A9270; G0378; G0480; J1630; J1650